=== PATIENT | female | born 1970 | race Caucasian/White ===

== ENCOUNTER → 2019-03-31 | Day surgery (SDC) | payer OTHER ==
--- NOTE | 2019-04-02 14:09 | OP ---
DATE OF OPERATION: 03/31/2019 PREOPERATIVE DIAGNOSIS: Right breast mass, 10 o'clock, 7 to 8 cm from the nipple. POSTOPERATIVE DIAGNOSIS: Right breast mass, 10 o'clock, 7 to 8 cm from the nipple. PROCEDURE: Right ultrasound-guided core biopsy with clip placement. ANESTHESIA: Local. ATTENDING SURGEON: Andria Louis MD ESTIMATED BLOOD LOSS: Minimal. COMPLICATIONS: None. PROCEDURE: The patient was made aware of the risks and benefits of the procedure and consented. She was placed in the supine position. Under sterile conditions, with 2% lidocaine for local anesthesia. A small sandeep was made in the skin. Using a 13-gauge suction biopsy device via lateral approach under ultrasound guidance, multiple cores were obtained and submitted to Pathology. Likewise under ultrasound guidance, a U-shaped clip was placed into the biopsy region. Well tolerated by patient. Steri-Strip and a sterile bandage was applied. Will contact her with the results. ANDRIA LOUIS M.D. SARAH [id number]
--- NOTE | 2019-04-03 16:19 | PATH ---
Surgical Pathology Report Patient Name: KRIS TRIPP [facility]. Rec. #: [id number] /Age/Gender: 1970 (Age: 48) / F Account: [id number] Location: RADIOLOGY ULTRA Taken: 03/31/2019 Received: 03/31/2019 Reported: 04/03/2019 Physicians: Andria Louis M.D. Specimen(s) Received RIGHT BREAST CORE BIOPSY 10N 7-8 Clinical History Nonpalpable lesion Ultrasound findings: probably benign Final Diagnosis BREAST, RIGHT, 10:00, 7-8 CM FN, CORE BIOPSY: BENIGN BREAST TISSUE SHOWING STROMAL FIBROSIS, FIBROADENOMATOID CHANGE AND COLUMNAR CELL CHANGE WITH FEW ASSOCIATED CALCIFICATIONS. Electronically Signed Jerrica Zuniga M.D. Gross Description Received in formalin labeled "right breast core biopsy 10:00 7-8 cm FN" are multiple arenas to yellow cylindrical portions of fibroadipose tissue ranging from 1.0-1.3 cm in length and averaging 0.2 cm in diameter, admixed with blood clot. The specimen is entirely submitted in 2 cassettes. Time formalin fixation: < 1 minute Total formalin fixation time: Approximately 6 hours KWS/04/03/2019 nirajki/04/03/2019
== END | disposition home or self-care (01) ==
LOC: FRADUS-SUR 13:37
PROVIDERS: ATTEND Surgery Surgical Oncology
PROC: 0HBT3ZX Excision of Right Breast, Percutaneous Approach, Diagnostic (ICD-10-PCS; principal; 2019-03-31)
DX: N60.31 Fibrosclerosis of right breast (principal); N64.89 Other specified disorders of breast; N63.11 Unspecified lump in the right breast, upper outer quadrant
CPT/HCPCS: 19083; 77065-TC; 87899; 88305-TC; A4648

== ENCOUNTER → 2021-07-31 | Day surgery (SDC) | payer OTHER | END | disposition home or self-care (01) | LOC: FMAMMOTONE 08:39 | PROVIDERS: ATTEND Internal Medicine | PROC: 0HBU3ZX Excision of Left Breast, Percutaneous Approach, Diagnostic (ICD-10-PCS; principal; 2021-07-31) | DX: N60.32 Fibrosclerosis of left breast (principal); N60.92 Unspecified benign mammary dysplasia of left breast; N64.89 Other specified disorders of breast; R92.0 Mammographic microcalcification found on diagnostic imaging of breast | CPT/HCPCS: 19081; 76098-TC-FY; 87899; 88305-TC; A4648 ==